=== PATIENT | male | born 1980 | race American Indian/Alaskan Native ===

== ENCOUNTER 2017-03-18 19:42 | Emergency (ER) | payer OTHER ==
--- NOTE | 2017-03-18 20:59 | Cat Scan Report ---
FINAL REPORT EXAM: CT HEAD/BRAIN WO CON HISTORY: seizures TECHNIQUE: CT imaging acquired through the head without intravenous contrast. Transaxial reformations are provided. PRIORS: None. FINDINGS: The ventricles, cisterns and sulci are normal. No intraparenchymal or extra-axial mass, hemorrhage, or mass effect. Bassett and white-matter differentiation is normal. Normal spherical shape of the globes. Paranasal sinuses and mastoid air cells are clear. No skull or facial fracture visualized. IMPRESSION: No acute intracranial abnormality. Consider MRI follow-up as warranted.
[2017-03-18 21:32] LABS: Basophils % (Auto) 0.6 % (0.0-1.8); Eosinophils % (Auto) 0.1 % (0.0-4.3); Hematocrit 41.1 % (35.5-45.6); Hemoglobin 13.6 gm/dl (11.8-15.2); Mean Corpuscular HGB Conc 33 % (32-34); Mean Corpuscular Hemoglobin 31 pg (28-32); Mean Corpuscular Volume 94 fl (84-94); Platelet Count 226 K/mm3 (140-440); Red Blood Count 4.36 M/mm3 (3.65-5.03); Red Cell Distribution Width 15.2 % (13.2-15.2); White Blood Count 9.5 K/mm3 (4.5-11.0)
[2017-03-18 21:52] LABS: Alanine Aminotransferase 18 units/L (7-56); Albumin 4.3 g/dL (3.9-5); Albumin/Globulin Ratio 1.2 %; Alkaline Phosphatase 54 units/L (35-129); Anion Gap 20 mmol/L; BUN/Creatinine Ratio 8.33; Blood Urea Nitrogen 10 mg/dL (9-20); Calcium 8.5 mg/dL (8.4-10.2); Carbon Dioxide 22 mmol/L (22-30); Glucose 111 mg/dL (75-100); Sodium 135 mmol/L (137-145); Total Protein 7.8 g/dL (6.3-8.2)
[2017-03-18 22:04] LABS: Potassium 2.8 mmol/L (3.6-5.0)
[2017-03-18] MEDS ORDERED: K-DUR PO ONE ×2 (22:09→22:11)
[2017-03-18 23:04] LABS: Urine Drugs of Abuse Note Disclamer
[2017-03-18] MEDS: NS/KCL 20MEQ 20 MEQ/1,000 ML BAG IV SCH (23:10)
[2017-03-18 23:30] LABS: Bacteria,Urine 1+ /HPF (Negative); Bilirubin,Urine NEG (Negative); Blood,Urine NEG (Negative); Ketones,Urine TR mg/dL (Negative); Leukocyte Esterase,Urine NEG (Negative); Mucus,Urine FEW /HPF; Nitrite,Urine NEG (Negative); Urobilinogen,Urine < 2.0 mg/dL (<2.0)
--- NOTE | 2017-03-19 00:57 | Emergency Department Report ---
HPI - General Chief Complaint: Altered Mental Status Time Seen by Provider: 03/18/17 20:14 - HPI HPI: This patient is a 37-year-old male who was brought by EMS for confusion, acting weird. Patient was dropped at [facility] and the staff at [facility] did not have any history on the patient. After the patient was dropped, he was noticed to be diaphoretic, confused, fidgeting, acting weird according to the staff at [facility]. Patient could not tell them his history. Patient was found also to have a heart rate of 147, he was giving 200 mL normal saline per EMS. Patient fingerstick was 119. In ED patient states he was at [facility] for cocaine, alcohol detox. He would not go into detail but will be observed to be talking to people that aren't there at [facility]. Patient appeared to be having visual hallucinations and delusions. Nowhere on EMS note does it mention the patient having a seizure, or any other kinds of distress. ED Past Medical Hx - Past Medical History Previous Medical History?: No - Surgical History Past Surgical History?: No - Social History Smoking Status: Never Smoker Substance Use Type: None - Medications Home Medications: Home Medications Medication Instructions Recorded Confirmed Last Taken Type No Known Home Medications [No 03/18/17 03/18/17 Unknown History Reported Home Medications] ED Review of Systems ROS: Stated complaint: MEDICAL CLEARANCE Other details as noted in HPI Comment: All other systems reviewed and negative Genitourinary: denies: urgency, dysuria Musculoskeletal: denies: back pain, joint swelling, arthralgia Skin: denies: rash, lesions Neurological: denies: headache, weakness, paresthesias Psychiatric: anxiety, auditory hallucinations, visual hallucinations Physical Exam - Physical Exam Vital Signs: Vital Signs 03/18/17 03/18/17 03/18/17 19:54 22:01 23:10 Temperature 98.7 F 99.3 F Pulse Rate 130 H 90 Respiratory 18 18 18 Rate Blood Pressure 119/94 Blood Pressure 159/82 [Left] O2 Sat by Pulse 97 99 99 Oximetry Physical Exam: - Physical Exam Physical Exam: - General Limitations: No Limitations General appearance: alert, in no apparent distress, obese - Head Head exam: Present: atraumatic, normocephalic - Eye Eye exam: Present: normal appearance - ENT ENT exam: Present: mucous membranes moist - Neck Neck exam: Present: normal inspection - Respiratory Respiratory exam: Present: normal lung sounds bilaterally. Absent: respiratory distress - Cardiovascular Cardiovascular Exam: Present: normal rhythm, tachycardia. Absent: systolic murmur, diastolic murmur, rubs, gallop - GI/Abdominal GI/Abdominal exam: Present: soft, normal bowel sounds - Extremities Exam Extremities exam: Present: normal inspection - Back Exam Back exam: Present: normal inspection - Neurological Exam Neurological exam: Present: alert, oriented X3 - Psychiatric Psychiatric exam: Visual and auditory hallucinations, no SI no HI - Skin Skin exam: Present: warm, dry, intact, normal color. Absent: rash ED Course Vital Signs 03/18/17 03/18/17 03/18/17 19:54 22:01 23:10 Temperature 98.7 F 99.3 F Pulse Rate 130 H 90 Respiratory 18 18 18 Rate Blood Pressure 119/94 Blood Pressure 159/82 [Left] O2 Sat by Pulse 97 99 99 Oximetry - Reevaluation(s) Reevaluation #1: 03/19/17 00:58 Differential diagnosis include: Substance withdrawal syndrome such as alcohol, opiates, benzos or meth. We will optimize the patient's electrolyte, will place on 1013 until further evaluation can be obtained by the psychiatric team. ED Medical Decision Making - Lab Data Result diagrams: 03/18/17 21:19 03/19/17 00:14 Critical care attestation.: If time is entered above; I have spent that time in minutes in the direct care of this critically ill patient, excluding procedure time. ED Disposition Clinical Impression: Psychosis Qualifiers: Psychosis type: unspecified psychosis type Qualified Code(s): F29 - Unspecified psychosis not due to a substance or known physiological condition Disposition: DC/TX-65 PSY HOSP/PSY UNIT Is pt being admited?: No Does the pt Need Aspirin: No Condition: Stable Referrals: PRIMARY CARE, [Primary Care Provider] - 3-5 Days
[2017-03-19] MEDS ORDERED: ATIVAN PO ONE (01:01)
[2017-03-19] MEDS ORDERED: K-DUR PO ONE (01:01)
--- NOTE | 2017-03-19 18:50 | Consultation ---
History of Present Illness - Reason for Consult Consult date: 03/19/17 Reason for consult: Mental Health Evaluation Requesting physician: LAURIE EPPS - Chief Complaint Chief complaint: "I have no clue" - History of Present Psychiatric Illness This patient is a 37-year-old male who was brought by EMS for confusion and bizarre behavior. Today patient is calm and cooperative with a circumstantial thought process. Earlier he stated that his family was "murdered." I returned to follow up with patient reference his family being murdered, he denies saying that. He cannot remember if he was a resident at [facility] or the [facility] per the ER note prior to being admitted to [facility]. He stated being in [facility] for 5 days. Patient was admitted today 03/19/2017. He was able to tell me his and recall 2/3 numbers (3,5,9) within 5 mins. He stated that he experience voices (AH's) "talking loud" through out the day and increased at night causing him sleep disturbance. He stated that he have not slept in a week. Also, the patient stated being threatened by someone, but cannot elaborate more about this person (paranoia). He stated that he uses recreational drugs (marijuana/ cocaine) often and would like to get "cleaned." He denies SI/HI's and VH's. He denies a poor appetite. He denies excessive alcohol consumption (etoh). Medications and Allergies Allergies Allergy/AdvReac Type Severity Reaction Status Date / Time No Known Allergies Allergy Verified 03/18/17 22:18 Home Medications Medication Instructions Recorded Confirmed Last Taken Type No Known Home Medications [No 03/18/17 03/18/17 Unknown History Reported Home Medications] Active Meds: Active Medications Potassium Chloride/Sodium Chloride (Ns/Kcl 20meq) 20 meq in 1,000 mls @ 150 mls /hr IV DIRECT [place] Last Admin: 03/18/17 23:10 Dose: 150 mls/hr Past psychiatric history - Past Medical History Past Medical History: No medical history Past Surgical History: No surgical history - past Psychiatric treatment and history psychiatric treatment history: Per the ER note, the patient was at [facility] possibly the [facility]. - Social History Social history: other (10th grade education) Mental Status Exam - Vital signs Last Vital Signs Temp 98.2 F 03/19/17 08:09 Pulse 55 L 03/19/17 08:09 Resp 20 03/19/17 08:09 BP 144/86 03/19/17 08:09 Pulse Ox 100 03/19/17 08:09 - Exam Narrative exam: ROS: (+) psychosis MSE: Appearance: calm, cooperative Behavior: regular eye contact Speech: regular rate and tone Mood: "okay" Affect: labile Thought Process: circumstantial Thought Content: Denies SI/HI's and VH's, disorganized, paranoid Motor Activity: lying in bed Cognition: A/Ox 3 Insight: limited Judgment: limited Results Result Diagrams: 03/18/17 21:19 03/19/17 00:14 Abnormal lab results 03/18/17 03/18/17 03/19/17 Range/Units 21:19 21:19 00:14 Lymph % (Auto) 8.2 L (13.4-35.0) % Campbell % (Auto) 8.2 H (0.0-7.3) % Lymph # 0.8 L (1.2-5.4) K/mm3 Seg Neutrophils % 82.9 H (40.0-70.0) % Seg Neutrophils # 7.9 H (1.8-7.7) K/mm3 Sodium 135 L (137-145) mmol/L Potassium 2.8 L* 3.2 L (3.6-5.0) mmol/L Chloride 96.0 L (98-107) mmol/L Glucose 111 H (75-100) mg/dL All other labs normal. Assessment and Plan Assessment and plan: Impression: Unspecified Psychosis with paranoia. Today patient is calm and cooperative with a circumstantial thought process. UDS is negative. DDx: R/O Bipolar, Schizoaffective DO Recommendation/Plan: Continue 1013 with placement to inpatient psy services. Start Geodon 20 mg PO BID for psychotic symptoms. Discussed possible metabolic side effects of Geodon with patient.
[2017-03-19] MEDS: NS/KCL 20MEQ 20 MEQ/1,000 ML BAG IV SCH (21:45)
[2017-03-19] MEDS: GEODON PO SCH (21:59)
[2017-03-20] MEDS: NS/KCL 20MEQ 20 MEQ/1,000 ML BAG IV SCH (07:34)
[2017-03-20] MEDS: GEODON PO SCH ×2 (10:11→21:41)
--- NOTE | 2017-03-20 15:31 | Progress Note ---
Subjective - Reason for Consult Consult date: 03/20/17 Reason for consult: Psychiatry Follow-up - Chief Complaint Chief complaint: "Hello" This patient is a 37-year-old male who was brought by EMS for confusion and bizarre behavior. Today patient is calm and cooperative with a circumstantial thought process during the assessment. He stated that he got rest last night. He stated that he would like to take a shower and brush his teeth. He still don' t remember what happened to cause him to be admitted to [facility]. He stated wanting help to stay "clean" (off drugs). He denies SI/HI's, AVH's, and depression. He denies any side effects of his medication. Mental Status Exam - Vital signs Last Vital Signs Temp 98.4 F 03/19/17 20:18 Pulse 73 03/20/17 08:47 Resp 18 03/20/17 08:47 BP 130/74 03/20/17 08:47 Pulse Ox 100 03/20/17 08:47 - Exam Narrative exam: MSE: Appearance: calm, cooperative Behavior: regular eye contact Speech: regular rate and tone Mood: "so so" Affect: labile Thought Process: circumstantial Thought Content: Denies SI/HI's and AVH's Motor Activity: lying in bed Cognition: A/Ox 3 Insight: variable Judgment: variable Assessment and Plan Impression: Unspecified Psychosis with paranoia. Today patient is calm and cooperative with a circumstantial thought process. UDS is negative. Patient is homeless. Recommendation/Plan: Evaluate 1013 in 24 hours to determine proper dispo. Continue Geodon 20 mg PO BID for psychotic symptoms. Discussed possible metabolic side effects of Geodon with patient. Fire Investigation Manager involvement, patient is homeless.
[2017-03-21] MEDS: GEODON PO SCH ×4 (11:26→22:06)
[2017-03-21 17:15] VITALS: BP 131/59
[2017-03-22] MEDS ORDERED: TYLENOL PO PRN (08:00)
[2017-03-22] MEDS: GEODON PO SCH (09:52)
--- NOTE | 2017-03-22 12:01 | Progress Note ---
Subjective - Reason for Consult Consult date: 03/22/17 Reason for consult: Psychiatry Follow-up - Chief Complaint Chief complaint: "When can I leave" This patient is a 37-year-old male who was brought by EMS for confusion and bizarre behavior. Today patient is calm and cooperative with a linear thought process during the assessment. He stated feeling "pretty" good today. Upon my arrival to his room, he was eating his breakfast. He stated that he must stop using drugs or he will find himself back in the hospital. He stated that he want to get a job, but recently been doing "yard work" for money. He denies SI/ HI's, AVH's, and depression. Mental Status Exam - Vital signs Last Vital Signs Temp 98.7 F 03/21/17 17:14 Pulse 74 03/21/17 17:14 Resp 16 03/22/17 09:53 BP 131/59 03/21/17 17:14 Pulse Ox 100 03/22/17 09:53 - Exam Narrative exam: MSE: Appearance: calm, cooperative Behavior: regular eye contact Speech: regular rate and tone Mood: "well" Affect: congruent to mood Thought Process: linear Thought Content: Denies SI/HI's and AVH's Motor Activity: lying in bed Cognition: A/Ox 3 Insight: fair Judgment: fair Assessment and Plan Impression: Historical Dx: Substance Use Do (cocaine). Unspecified Psychosis. Today patient is calm and cooperative with a circumstantial thought process. UDS is negative. Patient is homeless. Patient denies perceptional disturbances. DDx: Possibly Substance Induced Psychosis Recommendation/Plan: Rescind 1013. Continue Geodon 20 mg PO BID. Patient can follow-up with [facility] for outpatient psy/rehab services. Discussed possible metabolic side effects of Geodon with patient. Customer Manager involvement, patient is homeless.
== END 2017-03-22 18:10 ==
LOC: ED 19:42 → EEVIPCON 19:42 → ED 03-22 18:10
DX: F29 Unspecified psychosis not due to a substance or known physiological condition (principal); F41.9 Anxiety disorder, unspecified; R44.1 Visual hallucinations
CPT/HCPCS: 36415; 70450; 80053; 80307; 81001; 84132; 85025; 93005; 93010; 96360; 96361; 99285; G0480; 80320; 96365; 96366